=== PATIENT | female | born 1955 | race Caucasian/White ===

== ENCOUNTER 2019-07-02 22:29 | Emergency (ER) | payer OTHER ==
[~2019-07-02] VITALS: Ht 160 cm; Wt 74.8 kg
[2019-07-02 22:45] VITALS: BP_SYST 115
--- NOTE | 2019-07-02 23:40 | NUR ---
Patient triaged and placed in waiting room. VSS and patient appears in no acute distress at this time. Accompanied by DAUGHTER, awaiting available bed, and MD notified of need for MSE.
--- NOTE | 2019-07-03 01:23 | NUR ---
Patient to ER bed 01 to gown for evaluation. Side rails up.
--- NOTE | 2019-07-03 01:27 | NUR ---
Pt AAOx4 ambulated into ED c/o 1 episode of generalized weakness yesterday morning and is concerned she may have had a stroke. NIHSS 0. Also c/o redness and swelling to L lower extremity x 2 weeks. Pt has been treated at [facility] with no relief. No other injuries/complaints per pt/noted. Will continue to monitor.
--- NOTE | 2019-07-03 01:30 | NUR ---
ER Dr. Johnson at bedside examining patient.
[2019-07-03] MEDS ORDERED: VANCOMYCIN HCL 1,000 MG in D5W 250 ML IV ONE (01:45)
--- NOTE | 2019-07-03 02:23 | NUR ---
Lab at bedside for blood draw
[2019-07-03 02:30] LABS: BASOPHILS % (AUTO) 0.6 % (0.0-2.0); EOSINOPHILS # (AUTO) 0.1 K/uL (0.0-0.4); EOSINOPHILS % (AUTO) 1.6 % (0.0-4.0); HEMATOCRIT 34.2 % (36-48); HEMOGLOBIN 11.5 g/dL (12.0-16.0); LYMPHOCYTES # (AUTO) 1.4 K/uL (1.0-5.5); LYMPHOCYTES % (AUTO) 27.8 % (20.5-51.5); MEAN CORPUSCULAR HEMOGLOBIN 29 pg (27-31); MEAN CORPUSCULAR HGB CONC 34 % (32-36); MEAN CORPUSCULAR VOLUME 87 fL (79.0-98.0); MONOCYTES # (AUTO) 0.8 K/uL (0.0-1.0); MONOCYTES % (AUTO) 15.6 % (1.7-9.3); NEUTROPHILS # (AUTO) 2.7 K/uL (1.8-7.7); NEUTROPHILS % (AUTO) 54.4 % (40.0-70.0); PLATELET COUNT (AUTO) 231 K/uL (130-430); RED BLOOD CELL COUNT(AUTO) 3.94 MIL/uL (4.2-6.2); RED CELL DISTRIBUTION WIDTH 14.3 % (9.0-15.0)
[2019-07-03 02:44] LABS: CALCIUM 8.4 mg/dL (8.4-11.0); CREATININE 0.8 mg/dL (0.55-1.30); POTASSIUM 3.3 mmol/L (3.5-5.1)
[2019-07-03 02:50] LABS: ALBUMIN 2.6 g/dL (3.4-4.8); TOTAL BILIRUBIN 0.4 mg/dL (0.0-1.0)
--- NOTE | 2019-07-03 03:43 | NUR ---
Johnie ventura in [facility] - 07/03/19 at 0351 by [email or web address] Care endorsed to Guido VILLALBA
--- NOTE | 2019-07-03 03:43 | NUR ---
Care endorsed to Gayla VILLALBA
[2019-07-03 04:23] VITALS: BP_SYST 121
--- NOTE | 2019-07-03 04:23 | NUR ---
Patient given written and verbal discharge instructions and verbalizes understanding. ER MD Johnson discussed with patient the results and treatment provided. Patient in stable condition. ID arm band removed. Rx of Clindamycin given. Patient educated on pain management and to follow up with PMD. Pain Scale 0. Opportunity for questions provided and answered. Medication side effect fact sheet provided.
== END 2019-07-03 04:23 | disposition home or self-care (01) ==
LOC: SED 22:29
DX: L03.116 Cellulitis of left lower limb (principal); F17.210 Nicotine dependence, cigarettes, uncomplicated; Z71.6 Tobacco abuse counseling; Z88.0 Allergy status to penicillin
CPT/HCPCS: 36415; 71045; 73590-TC; 80053; 83605; 84484; 85025; 87040-TC; 93005; 99285

== ENCOUNTER 2019-10-09 14:19 | Inpatient (IN) | payer OTHER ==
[~2019-10-09] VITALS: Ht 160 cm; Wt 68.0 kg
[2019-10-09 14:20] VITALS: BP_SYST 103
[2019-10-09] MEDS ORDERED: NACL 0.9% 1,000 ML IV ONE ×2 (15:13→17:45)
[2019-10-09] MEDS ORDERED: VANCOMYCIN HCL 1,000 MG in NS 250 ML IV ONE (15:15)
[2019-10-09] MEDS ORDERED: ONDANSETRON HCL 4 MG/2 ML VIAL IVP PRN ×2 (17:45→18:00)
[2019-10-09] MEDS ORDERED: ACETAMINOPHEN 325 MG TABLET PO PRN (17:45)
[2019-10-09] MEDS ORDERED: TEMAZEPAM 15 MG CAPSULE PO PRN (18:00)
[2019-10-09] MEDS ORDERED: HYDROcodone/ACETAMIN 5-325 MG TAB (NORCO/ VICODIN) PO PRN (18:00)
[2019-10-09 18:35] VITALS: BP_SYST 116
[2019-10-09 19:30] VITALS: BP_SYST 128
[2019-10-09] MEDS: NICOTINE 21 MG/24 HR PATCH.TD24 TD SCH (19:30)
[2019-10-09] MEDS: HYDROcodone/ACETAMIN 10-325 MG TAB PO PRN (20:29)
[2019-10-09] MEDS ORDERED: VANCOMYCIN HCL 1 GM/NS PREMIX 250 ML IV ONE (21:00)
[2019-10-09] MEDS ORDERED: SILVER SULFADIAZINE 1%, 400 GM 400 GM CREAM.GM. TP SCH (21:00)
[2019-10-09] MEDS ORDERED: CEFAZOLIN 1 GM IVPB PREMIX 50 ML IV SCH (22:00)
[2019-10-09] MEDS: ENOXAPARIN SODIUM 40 MG/0.4 ML SYRINGE SUBCUT SCH (23:25)
[2019-10-10 00:31] VITALS: BP_SYST 120
[2019-10-10] MEDS ORDERED: CEFAZOLIN 1 GM IVPB PREMIX 50 ML IV ONE (00:55)
[2019-10-10] MEDS ORDERED: VANCOMYCIN HCL 1000 MG/VIAL IV ONE (00:56)
[2019-10-10 08:00] VITALS: BP_SYST 110
[2019-10-10] MEDS: NICOTINE 21 MG/24 HR PATCH.TD24 TD SCH (09:21)
[2019-10-10] MEDS: SILVER SULFADIAZINE 1%, 25 GM TOPICAL CREAM (SSD) TP SCH ×2 (09:21→21:32)
[2019-10-10] MEDS: CEFAZOLIN 1 GM IVPB PREMIX 50 ML IV SCH ×2 (09:21→17:47)
[2019-10-10 12:00] VITALS: BP_SYST 100
[2019-10-10 13:14] LABS: CALCIUM 8.3 mg/dL (8.4-11.0); CREATININE 1.09 mg/dL (0.55-1.30)
[2019-10-10 13:19] LABS: ALBUMIN 1.8 g/dL (3.4-4.8); TOTAL BILIRUBIN 0.5 mg/dL (0.0-1.0)
[2019-10-10 13:36] LABS: POTASSIUM 2.8 mmol/L (3.5-5.1)
[2019-10-10] MEDS ORDERED: POTASSIUM CHLORIDE 20 MEQ TAB.PRT.SR PO ONE ×2 (13:45→18:00)
[2019-10-10] MEDS ORDERED: CHOLECALCIFEROL (VITAMIN D3) 2,000 UNIT TABLET PO ONE (13:45)
[2019-10-10] MEDS ORDERED: MULTIVITS,CA,MINERALS/IRON/FA 1 TABLET PO ONE (13:45)
[2019-10-10] MEDS: HYDROcodone/ACETAMIN 10-325 MG TAB PO PRN (14:12)
[2019-10-10 14:22] LABS: BASOPHILS # (AUTO) 0.1 K/uL (0.0-0.2); BASOPHILS % (AUTO) 0.8 % (0.0-2.0); EOSINOPHILS % (AUTO) 0.1 % (0.0-4.0); HEMATOCRIT 36.1 % (36-48); HEMOGLOBIN 12.2 g/dL (12.0-16.0); LYMPHOCYTES # (AUTO) 1.1 K/uL (1.0-5.5); LYMPHOCYTES % (AUTO) 10.2 % (20.5-51.5); MEAN CORPUSCULAR HEMOGLOBIN 28 pg (27-31); MEAN CORPUSCULAR HGB CONC 34 % (32-36); MEAN CORPUSCULAR VOLUME 83 fL (79.0-98.0); MONOCYTES # (AUTO) 0.3 K/uL (0.0-1.0); MONOCYTES % (AUTO) 2.8 % (1.7-9.3); NEUTROPHILS % (AUTO) 86.1 % (40.0-70.0); PLATELET COUNT (AUTO) 257 K/uL (130-430); RED BLOOD CELL COUNT(AUTO) 4.33 MIL/uL (4.2-6.2); RED CELL DISTRIBUTION WIDTH 15.7 % (9.0-15.0); WHITE BLOOD COUNT (AUTO) 10.5 K/uL (4.8-10.8)
[2019-10-10 14:31] LABS: CALCIUM 8.5 mg/dL (8.4-11.0); CREATININE 1.05 mg/dL (0.55-1.30)
[2019-10-10 14:35] LABS: INR 1.1 (0.8-1.2); PROTHROMBIN TIME 11.4 SECS (9.5-12.5)
[2019-10-10 14:46] LABS: ALBUMIN 1.7 g/dL (3.4-4.8); TOTAL BILIRUBIN 0.5 mg/dL (0.0-1.0)
[2019-10-10 16:26] VITALS: BP_SYST 99
[2019-10-10 20:00] VITALS: BP_SYST 99
[2019-10-10] MEDS: ENOXAPARIN SODIUM 40 MG/0.4 ML SYRINGE SUBCUT SCH (21:31)
[2019-10-10] MEDS ORDERED: VANCOMYCIN HCL 1,000 MG in NS 250 ML IV SCH (23:00)
[2019-10-11 00:30] VITALS: BP_SYST 94
[2019-10-11] MEDS: CEFAZOLIN 1 GM IVPB PREMIX 50 ML IV SCH ×3 (00:53→17:17)
[2019-10-11] MEDS: HYDROcodone/ACETAMIN 10-325 MG TAB PO PRN ×4 (02:42→22:25)
[2019-10-11 06:40] LABS: BASOPHILS % (AUTO) 0.6 % (0.0-2.0); EOSINOPHILS % (AUTO) 0.3 % (0.0-4.0); HEMATOCRIT 33.4 % (36-48); HEMOGLOBIN 11.3 g/dL (12.0-16.0); LYMPHOCYTES % (AUTO) 11.5 % (20.5-51.5); MEAN CORPUSCULAR HEMOGLOBIN 28 pg (27-31); MEAN CORPUSCULAR HGB CONC 34 % (32-36); MEAN CORPUSCULAR VOLUME 83 fL (79.0-98.0); MONOCYTES # (AUTO) 0.3 K/uL (0.0-1.0); MONOCYTES % (AUTO) 3.9 % (1.7-9.3); NEUTROPHILS % (AUTO) 83.7 % (40.0-70.0); PLATELET COUNT (AUTO) 222 K/uL (130-430); RED BLOOD CELL COUNT(AUTO) 4.02 MIL/uL (4.2-6.2); RED CELL DISTRIBUTION WIDTH 16.1 % (9.0-15.0); WHITE BLOOD COUNT (AUTO) 8.3 K/uL (4.8-10.8)
[2019-10-11 06:59] LABS: ALBUMIN 1.7 g/dL (3.4-4.8); CALCIUM 8.7 mg/dL (8.4-11.0); CREATININE 0.91 mg/dL (0.55-1.30); POTASSIUM 3.7 mmol/L (3.5-5.1); TOTAL BILIRUBIN 0.4 mg/dL (0.0-1.0)
[2019-10-11] MEDS: POTASSIUM CHLORIDE 20 MEQ TAB.PRT.SR PO SCH (09:27)
[2019-10-11] MEDS: CHOLECALCIFEROL (VITAMIN D3) 2,000 UNIT TABLET PO SCH (09:27)
[2019-10-11] MEDS: NICOTINE 21 MG/24 HR PATCH.TD24 TD SCH (09:27)
[2019-10-11] MEDS: MULTIVITS,CA,MINERALS/IRON/FA 1 TABLET PO SCH (09:27)
[2019-10-11] MEDS: SILVER SULFADIAZINE 1%, 25 GM TOPICAL CREAM (SSD) TP SCH ×2 (09:29→22:21)
[2019-10-11 12:00] VITALS: BP_SYST 95
[2019-10-11 16:50] VITALS: BP_SYST 112
[2019-10-11 20:00] VITALS: BP_SYST 108
[2019-10-11] MEDS: ENOXAPARIN SODIUM 40 MG/0.4 ML SYRINGE SUBCUT SCH (22:16)
[2019-10-11] MEDS: VANCOMYCIN HCL 1,500 MG in NS 250 ML IV SCH (22:17)
[2019-10-12] MEDS: CEFAZOLIN 1 GM IVPB PREMIX 50 ML IV SCH ×2 (01:18→08:08)
[2019-10-12 01:34] VITALS: BP_SYST 92
[2019-10-12 08:00] VITALS: BP_SYST 109
[2019-10-12] MEDS: POTASSIUM CHLORIDE 20 MEQ TAB.PRT.SR PO SCH (08:09)
[2019-10-12] MEDS: MULTIVITS,CA,MINERALS/IRON/FA 1 TABLET PO SCH (08:09)
[2019-10-12] MEDS: CHOLECALCIFEROL (VITAMIN D3) 2,000 UNIT TABLET PO SCH (08:09)
[2019-10-12] MEDS: NICOTINE 21 MG/24 HR PATCH.TD24 TD SCH (08:13)
[2019-10-12] MEDS: SILVER SULFADIAZINE 1%, 25 GM TOPICAL CREAM (SSD) TP SCH ×2 (09:00→20:19)
[2019-10-12] MEDS ORDERED: GADOBENATE DIMEGLUMINE 529 MG/ML, 15 ML VIAL IV ONE (10:50)
[2019-10-12 12:23] VITALS: BP_SYST 98
[2019-10-12] MEDS: HYDROcodone/ACETAMIN 10-325 MG TAB PO PRN ×2 (12:31→20:13)
[2019-10-12 16:20] VITALS: BP_SYST 110
[2019-10-12] MEDS ORDERED: BALSAM PERU/CASTOR OIL 60 GM OINT...G. TP SCH (17:00)
[2019-10-12] MEDS: CEFEPIME 1 GM in D5W 50 ML IV SCH (17:35)
[2019-10-12] MEDS: MORPHINE 4 MG/ML INJ. SYRINGE IVP PRN (17:47)
[2019-10-12] MEDS: VANCOMYCIN HCL 1,500 MG in NS 250 ML IV SCH (18:27)
[2019-10-12 20:00] VITALS: BP_SYST 99
[2019-10-12] MEDS: ENOXAPARIN SODIUM 40 MG/0.4 ML SYRINGE SUBCUT SCH (20:18)
[2019-10-13] MEDS: MORPHINE 4 MG/ML INJ. SYRINGE IVP PRN ×3 (00:18→20:01)
[2019-10-13 02:27] VITALS: BP_SYST 101
[2019-10-13] MEDS: CEFEPIME 1 GM in D5W 50 ML IV SCH ×2 (05:07→16:36)
[2019-10-13 06:55] LABS: BASOPHILS # (AUTO) 0.1 K/uL (0.0-0.2); BASOPHILS % (AUTO) 0.6 % (0.0-2.0); EOSINOPHILS # (AUTO) 0.4 K/uL (0.0-0.4); EOSINOPHILS % (AUTO) 4.5 % (0.0-4.0); HEMATOCRIT 30.5 % (36-48); HEMOGLOBIN 10.1 g/dL (12.0-16.0); LYMPHOCYTES # (AUTO) 1.5 K/uL (1.0-5.5); LYMPHOCYTES % (AUTO) 17.8 % (20.5-51.5); MEAN CORPUSCULAR HEMOGLOBIN 28 pg (27-31); MEAN CORPUSCULAR HGB CONC 33 % (32-36); MEAN CORPUSCULAR VOLUME 84 fL (79.0-98.0); MONOCYTES # (AUTO) 0.8 K/uL (0.0-1.0); NEUTROPHILS # (AUTO) 5.9 K/uL (1.8-7.7); NEUTROPHILS % (AUTO) 68.1 % (40.0-70.0); PLATELET COUNT (AUTO) 188 K/uL (130-430); RED BLOOD CELL COUNT(AUTO) 3.64 MIL/uL (4.2-6.2); RED CELL DISTRIBUTION WIDTH 16.2 % (9.0-15.0); WHITE BLOOD COUNT (AUTO) 8.6 K/uL (4.8-10.8)
[2019-10-13 07:17] LABS: CALCIUM 8.6 mg/dL (8.4-11.0); CREATININE 0.82 mg/dL (0.55-1.30); POTASSIUM 4.3 mmol/L (3.5-5.1)
[2019-10-13] MEDS: CHOLECALCIFEROL (VITAMIN D3) 2,000 UNIT TABLET PO SCH (08:12)
[2019-10-13] MEDS: POTASSIUM CHLORIDE 20 MEQ TAB.PRT.SR PO SCH (08:12)
[2019-10-13] MEDS: MULTIVITS,CA,MINERALS/IRON/FA 1 TABLET PO SCH (08:12)
[2019-10-13] MEDS: NICOTINE 21 MG/24 HR PATCH.TD24 TD SCH (08:13)
[2019-10-13 08:15] VITALS: BP_SYST 90
[2019-10-13] MEDS: SILVER SULFADIAZINE 1%, 25 GM TOPICAL CREAM (SSD) TP SCH ×2 (08:16→21:25)
[2019-10-13] MEDS: HYDROcodone/ACETAMIN 10-325 MG TAB PO PRN (08:22)
[2019-10-13 12:00] VITALS: BP_SYST 104
[2019-10-13 16:51] VITALS: BP_SYST 95
[2019-10-13] MEDS: VANCOMYCIN HCL 1,500 MG in NS 250 ML IV SCH (17:42)
[2019-10-13 20:00] VITALS: BP_SYST 105
[2019-10-13] MEDS: ENOXAPARIN SODIUM 40 MG/0.4 ML SYRINGE SUBCUT SCH (21:24)
[2019-10-14 01:33] VITALS: BP_SYST 142
[2019-10-14] MEDS: CEFEPIME 1 GM in D5W 50 ML IV SCH ×2 (05:46→16:37)
[2019-10-14 06:33] LABS: BASOPHILS % (AUTO) 0.6 % (0.0-2.0); EOSINOPHILS # (AUTO) 0.3 K/uL (0.0-0.4); HEMATOCRIT 31.8 % (36-48); HEMOGLOBIN 10.4 g/dL (12.0-16.0); LYMPHOCYTES # (AUTO) 1.3 K/uL (1.0-5.5); LYMPHOCYTES % (AUTO) 18.2 % (20.5-51.5); MEAN CORPUSCULAR HEMOGLOBIN 28 pg (27-31); MEAN CORPUSCULAR HGB CONC 33 % (32-36); MEAN CORPUSCULAR VOLUME 84 fL (79.0-98.0); MONOCYTES # (AUTO) 0.7 K/uL (0.0-1.0); MONOCYTES % (AUTO) 9.8 % (1.7-9.3); NEUTROPHILS # (AUTO) 4.6 K/uL (1.8-7.7); NEUTROPHILS % (AUTO) 67.4 % (40.0-70.0); PLATELET COUNT (AUTO) 214 K/uL (130-430); RED CELL DISTRIBUTION WIDTH 16.2 % (9.0-15.0); WHITE BLOOD COUNT (AUTO) 6.9 K/uL (4.8-10.8)
[2019-10-14 06:34] LABS: CREATININE 0.76 mg/dL (0.55-1.30); POTASSIUM 4.5 mmol/L (3.5-5.1)
[2019-10-14] MEDS: NICOTINE 21 MG/24 HR PATCH.TD24 TD SCH (09:00)
[2019-10-14] MEDS: CHOLECALCIFEROL (VITAMIN D3) 2,000 UNIT TABLET PO SCH (10:30)
[2019-10-14] MEDS: MULTIVITS,CA,MINERALS/IRON/FA 1 TABLET PO SCH (10:31)
[2019-10-14] MEDS: POTASSIUM CHLORIDE 20 MEQ TAB.PRT.SR PO SCH (10:31)
[2019-10-14] MEDS: SILVER SULFADIAZINE 1%, 25 GM TOPICAL CREAM (SSD) TP SCH (10:32)
[2019-10-14 12:57] VITALS: BP_SYST 100
[2019-10-14] MEDS ORDERED: MULT-33 PO (16:48)
[2019-10-14] MEDS ORDERED: VITD2000 PO (16:48)
[2019-10-14] MEDS ORDERED: SILVER SULFADIAZINE TP (16:57)
[2019-10-14 17:24] VITALS: BP_SYST 106
[2019-10-14 17:43] VITALS: BP_SYST 106
[2019-10-14] MEDS ORDERED: HEPARIN IV FLUSH 300 UNITS/3ML SYR INJ ONE (17:45)
== END 2019-10-14 18:07 | disposition home health service (06) | DRG 383 ==
LOC: SED 14:19 → SMU 17:38
PROVIDERS: ADMIT Internal Medicine; ATTEND Internal Medicine
DX: L03.116 Cellulitis of left lower limb (principal); E43 Unspecified severe protein-calorie malnutrition; L97.929 Non-pressure chronic ulcer of unspecified part of left lower leg with unspecified severity; I73.9 Peripheral vascular disease, unspecified; F17.200 Nicotine dependence, unspecified, uncomplicated; E87.6 Hypokalemia; D64.9 Anemia, unspecified; I89.0 Lymphedema, not elsewhere classified; B96.5 Pseudomonas (aeruginosa) (mallei) (pseudomallei) as the cause of diseases classified elsewhere; E66.9 Obesity, unspecified; Z90.49 Acquired absence of other specified parts of digestive tract; Z68.26 Body mass index [BMI] 26.0-26.9, adult; Z88.0 Allergy status to penicillin; Z71.6 Tobacco abuse counseling
CPT/HCPCS: 36415; 71045; 73590-TC; 73720; 80048; 80053; 80202-TC; 83605; 83735-TC; 85025; 85610-TC; 85730-TC; 87040-TC; 87070-TC; 87186-TC; 93005; 93970; 99285; A9577; C1751; C1769; J0690; J0692; J1642; J1650; J2270; J2405; J3370; J7030; J7050; J7060

== ENCOUNTER 2020-08-07 22:40 | Emergency (ER) | payer OTHER, SELFPAY ==
[~2020-08-07] VITALS: Ht 160 cm; Wt 70.3 kg
[~2020-08-07 22:40] MED LIST: MULT-33 PO; SILVER SULFADIAZINE TP; VITD2000 PO
[2020-08-07 22:55] VITALS: BP_SYST 132
[2020-08-07] MEDS ORDERED: NACL 0.9% 1,000 ML IV ONE (23:15)
[2020-08-07] MEDS ORDERED: MORPHINE 4 MG/ML INJ. SYRINGE IVP ONE (23:15)
[2020-08-07] MEDS ORDERED: KETOROLAC TROMETHAMINE 30 MG VIAL IVP ONE (23:15)
[2020-08-07] MEDS ORDERED: OXYCODONE/ACETAMINOPHEN 5-325 TABLET PO ONE (23:45)
[2020-08-08 00:19] LABS: BASOPHILS # (AUTO) 0.2 K/uL (0.0-0.2); BASOPHILS % (AUTO) 1.9 % (0.0-2.0); EOSINOPHILS # (AUTO) 0.1 K/uL (0.0-0.4); EOSINOPHILS % (AUTO) 1.2 % (0.0-4.0); HEMATOCRIT 39.4 % (36-48); HEMOGLOBIN 12.9 g/dL (12.0-16.0); LYMPHOCYTES # (AUTO) 1.5 K/uL (1.0-5.5); LYMPHOCYTES % (AUTO) 16.4 % (20.5-51.5); MEAN CORPUSCULAR HEMOGLOBIN 28 pg (27-31); MEAN CORPUSCULAR HGB CONC 33 % (32-36); MEAN CORPUSCULAR VOLUME 85 fL (79.0-98.0); MONOCYTES # (AUTO) 0.2 K/uL (0.0-1.0); MONOCYTES % (AUTO) 2.5 % (1.7-9.3); NEUTROPHILS # (AUTO) 7.1 K/uL (1.8-7.7); PLATELET COUNT (AUTO) 265 K/uL (130-430); RED BLOOD CELL COUNT(AUTO) 4.65 MIL/uL (4.2-6.2); RED CELL DISTRIBUTION WIDTH 15.5 % (9.0-15.0); WHITE BLOOD COUNT (AUTO) 9.1 K/uL (4.8-10.8)
[2020-08-08 00:26] LABS: CALCIUM 9.9 mg/dL (8.4-11.0); CREATININE 1.19 mg/dL (0.55-1.30); POTASSIUM 4.4 mmol/L (3.5-5.1)
[2020-08-08 02:53] LABS: BILIRUBIN,URINE NEGATIVE (NEGATIVE); COLOR,URINE YELLOW (YELLOW); GLUCOSE,URINE NEGATIVE (NEGATIVE); KETONES,URINE NEGATIVE (NEGATIVE); LEUKOCYTE ESTERASE ,URINE 2+ (NEGATIVE); NITRITE, URINE POSITIVE (NEGATIVE); PROTEIN URINE NEGATIVE (NEGATIVE); UROBILINOGEN,URINE 0.2 (0.2-1.0)
[2020-08-08 02:55] LABS: BLOOD, URINE TRACE (NEGATIVE); CLARITY/URINE HAZY (CLEAR)
[2020-08-08 03:08] LABS: BACTERIA,URINE MODERATE /HPF (None Seen); WBC,URINE 20-50 /HPF (0-3)
[2020-08-08] MEDS ORDERED: cefTRIAXone 1 GM VIAL ONE (03:10)
[2020-08-08] MEDS ORDERED: LIDOCAINE 1%, 20 ML MDV 20 ML ONE (03:11)
[2020-08-08] MEDS ORDERED: CEPH500C2 PO (03:29)
[2020-08-08] MEDS ORDERED: KETO10TA2 PO (03:32)
[2020-08-08 03:42] VITALS: BP_SYST 122
== END 2020-08-08 03:42 | disposition home or self-care (01) ==
LOC: SED 22:40
DX: N20.0 Calculus of kidney (principal); N39.0 Urinary tract infection, site not specified; I10 Essential (primary) hypertension; F17.200 Nicotine dependence, unspecified, uncomplicated; Z88.0 Allergy status to penicillin; Z88.1 Allergy status to other antibiotic agents; Z79.899 Other long term (current) drug therapy
CPT/HCPCS: 36415; 74176; 76376; 76770; 80048; 81000; 85025; 87086; 96374; 99285; J0696; J1885; J2001; J2270

== ENCOUNTER 2021-07-30 11:46 | Inpatient (IN) | payer OTHER ==
[~2021-07-30] VITALS: Ht 160 cm; Wt 93.9 kg
[~2021-07-30 11:46] MED LIST changes: +CEPH-548 PO; +KETO10TA2 PO
[2021-07-30 12:01] VITALS: BP_SYST 106
[2021-07-30] MEDS ORDERED: VANCOMYCIN HCL 1,000 MG in NS 250 ML IV ONE (12:30)
[2021-07-30 14:03] LABS: CREATININE 0.96 mg/dL (0.55-1.30); POTASSIUM 3.9 mmol/L (3.5-5.1)
[2021-07-30 14:04] LABS: BASOPHILS # (AUTO) 0.1 K/uL (0.0-0.2); BASOPHILS % (AUTO) 0.3 % (0.0-2.0); EOSINOPHILS # (AUTO) 0.2 K/uL (0.0-0.4); EOSINOPHILS % (AUTO) 1.5 % (0.0-4.0); HEMATOCRIT 41.7 % (36-48); HEMOGLOBIN 14.2 g/dL (12.0-16.0); LYMPHOCYTES # (AUTO) 0.8 K/uL (1.0-5.5); LYMPHOCYTES % (AUTO) 4.6 % (20.5-51.5); MEAN CORPUSCULAR HEMOGLOBIN 30 pg (27-31); MEAN CORPUSCULAR HGB CONC 34 % (32-36); MEAN CORPUSCULAR VOLUME 87 fL (79.0-98.0); MONOCYTES # (AUTO) 0.3 K/uL (0.0-1.0); NEUTROPHILS # (AUTO) 15.1 K/uL (1.8-7.7); NEUTROPHILS % (AUTO) 91.6 % (40.0-70.0); PLATELET COUNT (AUTO) 182 K/uL (130-430); RED CELL DISTRIBUTION WIDTH 14.7 % (9.0-15.0); WHITE BLOOD COUNT (AUTO) 16.5 K/uL (4.8-10.8)
[2021-07-30 14:09] LABS: ALBUMIN 2.6 g/dL (3.4-4.8); TOTAL BILIRUBIN 1.5 mg/dL (0.0-1.0)
[2021-07-30] MEDS ORDERED: ACETAMINOPHEN 325 MG TABLET PO PRN (14:30)
[2021-07-30] MEDS ORDERED: DOCUSATE SODIUM 100 MG CAPSULE PO PRN (14:30)
[2021-07-30] MEDS ORDERED: cefTRIAXone 1 GM in D5W 50 ML IV ONE (14:30)
[2021-07-30] MEDS ORDERED: ONDANSETRON HCL 4 MG/2 ML VIAL IVP PRN (14:30)
[2021-07-30 14:45] LABS: BILIRUBIN,URINE 1+ (NEGATIVE); BLOOD, URINE 2+ (NEGATIVE); CLARITY/URINE CLEAR (CLEAR); COLOR,URINE YELLOW (YELLOW); GLUCOSE,URINE NEGATIVE (NEGATIVE); KETONES,URINE NEGATIVE (NEGATIVE); LEUKOCYTE ESTERASE ,URINE TRACE (NEGATIVE); NITRITE, URINE NEGATIVE (NEGATIVE); PH,URINE 6.5 (5.0-8.0); PROTEIN URINE 2+ (NEGATIVE)
[2021-07-30 14:51] LABS: C-REACTIVE PROTEIN QUANT 30.8 mg/dL (0-0.5)
[2021-07-30 15:07] LABS: CKMB RELATIVE INDEX 0.5 (0.0-2.9); CREATINE KINASE MB 2.5 ng/mL (0-3.6)
[2021-07-30 15:08] LABS: INR 1.1 (0.8-1.2); PROTHROMBIN TIME 10.8 SECS (9.5-12.5)
[2021-07-30 15:13] LABS: BACTERIA,URINE MODERATE /HPF (None Seen); HYALINE CASTS, URINE 0-10 /LPF (None Seen)
[2021-07-30 15:27] LABS: PHOSPHORUS 2.4 mg/dL (2.7-4.5); THYROID STIMULATING HORMONE 0.48 uIu/mL (0.36-3.74)
[2021-07-30] MEDS ORDERED: NALOXONE HCL 0.4 MG/ML AMP (NARCAN) IVP PRN (16:15)
[2021-07-30] MEDS ORDERED: MORPHINE 4 MG INJ. 4 MG/ML VIAL IM ONE (17:00)
[2021-07-30 18:13] VITALS: BP_SYST 116
[2021-07-30] MEDS: VANCOMYCIN HCL 1,500 MG in NS 250 ML IV SCH (23:25)
[2021-07-31 02:44] VITALS: BP_SYST 104
[2021-07-31] MEDS: HYDROcodone/ACETAMIN 5-325 MG TAB (NORCO/ VICODIN) PO PRN ×2 (06:43→23:23)
[2021-07-31 07:14] LABS: BASOPHILS % (AUTO) 0.3 % (0.0-2.0); HEMATOCRIT 42.9 % (36-48); HEMOGLOBIN 14.3 g/dL (12.0-16.0); LYMPHOCYTES # (AUTO) 0.7 K/uL (1.0-5.5); LYMPHOCYTES % (AUTO) 6.3 % (20.5-51.5); MEAN CORPUSCULAR HEMOGLOBIN 29 pg (27-31); MEAN CORPUSCULAR HGB CONC 33 % (32-36); MEAN CORPUSCULAR VOLUME 88 fL (79.0-98.0); MONOCYTES # (AUTO) 0.3 K/uL (0.0-1.0); MONOCYTES % (AUTO) 2.4 % (1.7-9.3); NEUTROPHILS # (AUTO) 10.8 K/uL (1.8-7.7); PLATELET COUNT (AUTO) 133 K/uL (130-430); RED BLOOD CELL COUNT(AUTO) 4.87 MIL/uL (4.2-6.2); WHITE BLOOD COUNT (AUTO) 11.8 K/uL (4.8-10.8)
[2021-07-31 07:31] LABS: CALCIUM 9.9 mg/dL (8.4-11.0); CREATININE 1.12 mg/dL (0.55-1.30); POTASSIUM 3.8 mmol/L (3.5-5.1)
[2021-07-31 08:00] VITALS: BP_SYST 106
[2021-07-31 11:23] VITALS: BP_SYST 102
[2021-07-31 15:58] VITALS: BP_SYST 110
[2021-07-31] MEDS ORDERED: cefTRIAXone 1 GM IVPB PREMIX 50 ML IV SCH (18:00)
[2021-07-31] MEDS: NACL 0.9% 1,000 ML IV SCH (21:35)
[2021-07-31] MEDS: VANCOMYCIN HCL 1,500 MG in NS 250 ML IV SCH (21:37)
[2021-07-31 23:40] VITALS: BP_SYST 104
[2021-08-01 00:18] VITALS: BP_SYST 105
[2021-08-01] MEDS: NACL 0.9% 1,000 ML IV SCH ×2 (05:14→16:43)
[2021-08-01 07:38] LABS: BASOPHILS % (AUTO) 0.4 % (0.0-2.0); EOSINOPHILS % (AUTO) 0.5 % (0.0-4.0); HEMATOCRIT 34.2 % (36-48); HEMOGLOBIN 11.5 g/dL (12.0-16.0); LYMPHOCYTES # (AUTO) 0.8 K/uL (1.0-5.5); LYMPHOCYTES % (AUTO) 8.2 % (20.5-51.5); MEAN CORPUSCULAR HEMOGLOBIN 30 pg (27-31); MEAN CORPUSCULAR HGB CONC 34 % (32-36); MEAN CORPUSCULAR VOLUME 88 fL (79.0-98.0); MONOCYTES # (AUTO) 0.6 K/uL (0.0-1.0); MONOCYTES % (AUTO) 6.1 % (1.7-9.3); NEUTROPHILS # (AUTO) 7.7 K/uL (1.8-7.7); NEUTROPHILS % (AUTO) 84.8 % (40.0-70.0); PLATELET COUNT (AUTO) 112 K/uL (130-430); RED BLOOD CELL COUNT(AUTO) 3.91 MIL/uL (4.2-6.2); WHITE BLOOD COUNT (AUTO) 9.1 K/uL (4.8-10.8)
[2021-08-01 08:00] VITALS: BP_SYST 97
[2021-08-01 08:39] LABS: CALCIUM 9.4 mg/dL (8.4-11.0); CREATININE 0.85 mg/dL (0.55-1.30); PHOSPHORUS 1.7 mg/dL (2.7-4.5); POTASSIUM 3.7 mmol/L (3.5-5.1)
[2021-08-01 12:00] VITALS: BP_SYST 107
[2021-08-01] MEDS: cefTRIAXone 1 GM in D5W 50 ML IV SCH (13:10)
[2021-08-01 16:00] VITALS: BP_SYST 103
[2021-08-01] MEDS: VANCOMYCIN HCL 1,500 MG in NS 250 ML IV SCH (20:32)
[2021-08-02 01:31] VITALS: BP_SYST 107
[2021-08-02 06:01] LABS: CALCIUM 8.6 mg/dL (8.4-11.0); CREATININE 0.66 mg/dL (0.55-1.30); POTASSIUM 3.4 mmol/L (3.5-5.1)
[2021-08-02] MEDS: NACL 0.9% 1,000 ML IV SCH ×3 (06:41→22:53)
[2021-08-02] MEDS: MORPHINE 2 MG/ML INJ. SYRINGE IVP PRN ×2 (06:41→15:47)
[2021-08-02 07:23] LABS: BASOPHILS % (AUTO) 0.4 % (0.0-2.0); EOSINOPHILS # (AUTO) 0.1 K/uL (0.0-0.4); EOSINOPHILS % (AUTO) 1.6 % (0.0-4.0); HEMATOCRIT 31.5 % (36-48); HEMOGLOBIN 10.8 g/dL (12.0-16.0); LYMPHOCYTES # (AUTO) 0.7 K/uL (1.0-5.5); LYMPHOCYTES % (AUTO) 9.8 % (20.5-51.5); MEAN CORPUSCULAR HEMOGLOBIN 30 pg (27-31); MEAN CORPUSCULAR HGB CONC 34 % (32-36); MEAN CORPUSCULAR VOLUME 86 fL (79.0-98.0); MONOCYTES # (AUTO) 0.6 K/uL (0.0-1.0); MONOCYTES % (AUTO) 8.4 % (1.7-9.3); NEUTROPHILS # (AUTO) 5.7 K/uL (1.8-7.7); NEUTROPHILS % (AUTO) 79.8 % (40.0-70.0); PLATELET COUNT (AUTO) 107 K/uL (130-430); RED BLOOD CELL COUNT(AUTO) 3.65 MIL/uL (4.2-6.2); RED CELL DISTRIBUTION WIDTH 15.3 % (9.0-15.0); WHITE BLOOD COUNT (AUTO) 7.1 K/uL (4.8-10.8)
[2021-08-02 08:00] VITALS: BP_SYST 104
[2021-08-02] MEDS: cefTRIAXone 1 GM in D5W 50 ML IV SCH (08:11)
[2021-08-02] MEDS ORDERED: POTASSIUM CHLORIDE 20 MEQ TAB.PRT.SR PO ONE (10:30)
[2021-08-02 12:00] VITALS: BP_SYST 105
[2021-08-02 16:59] VITALS: BP_SYST 107
[2021-08-02] MEDS ORDERED: ERTAPENEM SODIUM 0.5 GM in NS 50 ML IV SCH (17:45)
[2021-08-02 20:00] VITALS: BP_SYST 93
[2021-08-02] MEDS: VANCOMYCIN HCL 1,500 MG in NS 250 ML IV SCH (21:00)
[2021-08-03] VITALS: BP_SYST 98
[2021-08-03 05:52] LABS: BASOPHILS % (AUTO) 0.5 % (0.0-2.0); EOSINOPHILS # (AUTO) 0.2 K/uL (0.0-0.4); EOSINOPHILS % (AUTO) 3.9 % (0.0-4.0); HEMATOCRIT 32.5 % (36-48); LYMPHOCYTES # (AUTO) 0.8 K/uL (1.0-5.5); LYMPHOCYTES % (AUTO) 12.9 % (20.5-51.5); MEAN CORPUSCULAR HEMOGLOBIN 29 pg (27-31); MEAN CORPUSCULAR HGB CONC 34 % (32-36); MEAN CORPUSCULAR VOLUME 87 fL (79.0-98.0); MONOCYTES # (AUTO) 0.6 K/uL (0.0-1.0); MONOCYTES % (AUTO) 9.8 % (1.7-9.3); NEUTROPHILS # (AUTO) 4.5 K/uL (1.8-7.7); NEUTROPHILS % (AUTO) 72.9 % (40.0-70.0); PLATELET COUNT (AUTO) 138 K/uL (130-430); RED BLOOD CELL COUNT(AUTO) 3.76 MIL/uL (4.2-6.2); RED CELL DISTRIBUTION WIDTH 15.3 % (9.0-15.0); WHITE BLOOD COUNT (AUTO) 6.1 K/uL (4.8-10.8)
[2021-08-03 06:54] LABS: CREATININE 0.61 mg/dL (0.55-1.30); POTASSIUM 3.5 mmol/L (3.5-5.1)
[2021-08-03 08:00] VITALS: BP_SYST 99
[2021-08-03] MEDS ORDERED: DOXY100T2 PO (08:05)
[2021-08-03] MEDS: NACL 0.9% 1,000 ML IV SCH (08:30)
[2021-08-03] MEDS: HYDROcodone/ACETAMIN 5-325 MG TAB (NORCO/ VICODIN) PO PRN (10:03)
[2021-08-03 11:27] VITALS: BP_SYST 99
[2021-08-03 12:00] VITALS: BP_SYST 98
[2021-08-03] MEDS ORDERED: VANCOMYCIN HCL 1,000 MG in NS 250 ML IV SCH (21:00)
== END 2021-08-03 12:15 | disposition home health service (06) | DRG 720 ==
LOC: SED 11:46 → SMU 14:28
PROVIDERS: ADMIT Family Medicine; ATTEND Family Medicine
PROC: 05HY33Z Insertion of Infusion Device into Upper Vein, Percutaneous Approach (ICD-10-PCS; principal; 2021-07-30)
PROC: B54NZZA Ultrasonography of Left Upper Extremity Veins, Guidance (ICD-10-PCS; 2021-07-30)
DX: A41.2 Sepsis due to unspecified staphylococcus (principal); E43 Unspecified severe protein-calorie malnutrition; L03.115 Cellulitis of right lower limb; E87.1 Hypo-osmolality and hyponatremia; E66.9 Obesity, unspecified; I87.8 Other specified disorders of veins; I87.2 Venous insufficiency (chronic) (peripheral); E87.6 Hypokalemia; I10 Essential (primary) hypertension; Z20.822 Contact with and (suspected) exposure to COVID-19; I73.9 Peripheral vascular disease, unspecified; N39.0 Urinary tract infection, site not specified; E80.6 Other disorders of bilirubin metabolism; B96.20 Unspecified Escherichia coli [E. coli] as the cause of diseases classified elsewhere; I89.0 Lymphedema, not elsewhere classified; Z16.12 Extended spectrum beta lactamase (ESBL) resistance; Z88.0 Allergy status to penicillin; Z88.4 Allergy status to anesthetic agent; Z79.899 Other long term (current) drug therapy; Z68.36 Body mass index [BMI] 36.0-36.9, adult
CPT/HCPCS: 36415; 71045; 80048; 80053; 80202; 81000; 82150; 82550; 82553; 83605; 83615; 83690; 83735; 83880; 84100; 84443; 85025; 85384; 85610-TC; 85730-TC; 86140; 87040; 87086; 93005; 93971; 96372; 99285; J0696; J1335; J2270; J3370; J7050; J7060

== ENCOUNTER 2021-09-20 15:56 | Inpatient (IN) | payer OTHER ==
[~2021-09-20] VITALS: Ht 160 cm; Wt 100.7 kg
[2021-09-20 15:56] VITALS: BP_SYST 121
[~2021-09-20 15:56] MED LIST changes: -CEPH-548 PO; +DOXY100T2 PO
[2021-09-20] MEDS ORDERED: VANCOMYCIN HCL 1,000 MG in NS 250 ML IV ONE (17:15)
[2021-09-20] MEDS ORDERED: CEFEPIME 2 GM in D5W 100 ML IV ONE (17:15)
[2021-09-20 17:58] LABS: MEAN CORPUSCULAR HGB CONC 33 % (32-36)
[2021-09-20] MEDS ORDERED: VANCOMYCIN HCL 1000 MG/VIAL IV ONE (18:05)
[2021-09-20 18:12] LABS: BASOPHILS % (AUTO) 0.2 % (0.0-2.0); HEMATOCRIT 40.6 % (36-48); HEMOGLOBIN 13.5 g/dL (12.0-16.0); LYMPHOCYTES # (AUTO) 0.5 K/uL (1.0-5.5); LYMPHOCYTES % (AUTO) 2.9 % (20.5-51.5); MEAN CORPUSCULAR HEMOGLOBIN 29 pg (27-31); MEAN CORPUSCULAR VOLUME 88 fL (79.0-98.0); MONOCYTES # (AUTO) 0.3 K/uL (0.0-1.0); MONOCYTES % (AUTO) 1.9 % (1.7-9.3); NEUTROPHILS # (AUTO) 16.9 K/uL (1.8-7.7); PLATELET COUNT (AUTO) 181 K/uL (130-430); RED BLOOD CELL COUNT(AUTO) 4.65 MIL/uL (4.2-6.2); RED CELL DISTRIBUTION WIDTH 15.9 % (9.0-15.0); WHITE BLOOD COUNT (AUTO) 17.8 K/uL (4.8-10.8)
[2021-09-20 18:16] LABS: ANION GAP 9 (5-15); CALCIUM 9.7 mg/dL (8.4-11.0); CHLORIDE 102 mmol/L (98-107); GLUCOSE 107 mg/dL (70-99); SODIUM SERUM 134 mmol/L (136-145); UREA NITROGEN, BLOOD 16 mg/dL (8-21)
[2021-09-20 18:23] LABS: PROTHROMBIN TIME 10.1 SECS (9.5-12.5)
[2021-09-20 18:35] LABS: ALANINE AMINOTRANSFERASE 62 U/L (12-78); ALBUMIN 3.2 g/dL (3.4-4.8); ASPARTATE AMINOTRANSFERASE 51 U/L (10-37); GFR AFRICAN AMERICAN 64 mL/min (>90); THYROID STIMULATING HORMONE 0.59 uIu/mL (0.36-3.74); TOTAL BILIRUBIN 0.9 mg/dL (0.0-1.0)
[2021-09-20] MEDS ORDERED: NACL 0.9% 1,000 ML IV ONE ×2 (18:45→23:15)
[2021-09-20 20:14] LABS: ALCOHOL, BLOOD < 3 mg/dL (<10)
[2021-09-20] MEDS ORDERED: ACETAMINOPHEN 500 MG TABLET ONE (22:53)
[2021-09-20] MEDS ORDERED: ACETAMINOPHEN 500 MG TABLET PO ONE (23:00)
[2021-09-20] MEDS ORDERED: NACL 0.9% 1,000 ML IV STA (23:02)
[2021-09-20] MEDS ORDERED: ACETAMINOPHEN I.V. 1000 MG 100 ML IV ONE (23:15)
[2021-09-20] MEDS ORDERED: KETOROLAC TROMETHAMINE 10 MG TABLET (TORADOL) PO SCH (23:30)
[2021-09-20] MEDS ORDERED: ENOXAPARIN SODIUM 40 MG/0.4 ML SYRINGE SUBCUT SCH (23:42)
[2021-09-20] MEDS ORDERED: ACETAMINOPHEN 325 MG TABLET PO PRN (23:45)
[2021-09-20] MEDS ORDERED: VANCOMYCIN HCL 500 MG in NS 100 ML IV ONE (23:45)
[2021-09-20] MEDS ORDERED: CEFEPIME 2 GM/VIAL (MAXIPIME) ONE (23:52)
[2021-09-20] MEDS ORDERED: NOREPINEPHRINE 4 MG/4 ML VIAL IV ONE (23:59)
[2021-09-21] VITALS (55 sets, daily range): BP systolic 76–111
[2021-09-21] MEDS ORDERED: *LOVENOX 1MG/KG Q12H/PHARMACY XX ONE
[2021-09-21] MEDS ORDERED: ETOMIDATE 20 MG/ 10 ML VIAL (AMIDATE) IVP ONE
[2021-09-21] MEDS ORDERED: ENOXAPARIN SODIUM 80 MG/0.8 ML SYRINGE SUBCUT ONE
[2021-09-21] MEDS ORDERED: SUCCINYLCHOLINE CHLORIDE 20 MG/ML(QUELICIN) IVP ONE
[2021-09-21] MEDS ORDERED: LevALBUTEROL HCL 1.25 MG/0.5 ML *CONC.* VIAL.NEB (XOPENEX CONC.) INH PRN
[2021-09-21 00:14] LABS: BILIRUBIN,URINE NEGATIVE (NEGATIVE); BLOOD, URINE 3+ (NEGATIVE); CLARITY/URINE CLOUDY (CLEAR); COLOR,URINE YELLOW (YELLOW); GLUCOSE,URINE NEGATIVE (NEGATIVE); KETONES,URINE NEGATIVE (NEGATIVE); LEUKOCYTE ESTERASE ,URINE 3+ (NEGATIVE); NITRITE, URINE POSITIVE (NEGATIVE); PH,URINE 6.5 (5.0-8.0); PROTEIN URINE 2+ (NEGATIVE); UROBILINOGEN,URINE 0.2 (0.2-1.0)
[2021-09-21] MEDS ORDERED: MIDAZOLAM HCL 5 MG/5 ML VIAL ONE (00:23)
[2021-09-21 00:24] LABS: BARBITURATE, URINE NEGATIVE (NEG <=200); BENZODIAZEPINE, URINE NEGATIVE (NEG <=150); CANNABINOID, URINE POSITIVE (NEG <=50); COCAINE, URINE NEGATIVE (NEG <=150); METHAMPHETAMINES SCREEN,URINE POSITIVE (NEG <=500); OPIATE, URINE NEGATIVE (NEG <=100); PHENCYCLIDINE SCREEN,URINE NEGATIVE (NEG <=25); UR TRICYCLIC ANTIDEPRESSANTS NEGATIVE (NEG <=300); URINE AMPHETAMINE POSITIVE (NEG <=500); URINE METHADONE NEGATIVE (NEG <=200); URINE OXYCODONE SCREEN NEGATIVE (NEG <=100); URINE PROPOXYPHENE SCREEN NEGATIVE (NEG <=300)
[2021-09-21] MEDS ORDERED: MIDAZOLAM HCL 2 MG/2 ML VIAL (VERSED) IVP ONE (00:30)
[2021-09-21] MEDS ORDERED: PROPOFOL DRIP 100 ML IV ONE (00:30)
[2021-09-21 00:31] LABS: BACTERIA,URINE MANY /HPF (None Seen); RBC,URINE 20-50 /HPF (0-3); WBC,URINE >100 /HPF (0-3)
[2021-09-21] MEDS ORDERED: MORPHINE 4 MG INJ. 4 MG/ML VIAL IVP PRN (00:45)
[2021-09-21] MEDS ORDERED: NOREPINEPHRINE 4 MG/4 ML VIAL IV ONE ×3 (02:42→07:33)
[2021-09-21] MEDS: NOREPINEPHRINE BITARTRATE 4 MG in NS 218 ML IV PRN ×2 (02:46→05:01)
[2021-09-21] MEDS: KCL 20 mEq in D5NS 1000 mL 1,000 ML IV SCH ×2 (03:05→19:43)
[2021-09-21] MEDS ORDERED: ENOXAPARIN SODIUM 100 MG/ML SYRINGE ONE (03:05)
[2021-09-21] MEDS: CLINDAMYCIN 600 mg/50mL D5W 50 ML IV SCH ×4 (05:16→19:42)
[2021-09-21] MEDS: PROPOFOL DRIP 100 ML IV PRN ×4 (05:32→22:33)
[2021-09-21 07:46] LABS: BASOPHILS % (AUTO) 0.2 % (0.0-2.0); EOSINOPHILS % (AUTO) 0.1 % (0.0-4.0); HEMATOCRIT 45.5 % (36-48); HEMOGLOBIN 14.4 g/dL (12.0-16.0); LYMPHOCYTES # (AUTO) 0.8 K/uL (1.0-5.5); LYMPHOCYTES % (AUTO) 4.1 % (20.5-51.5); MEAN CORPUSCULAR HEMOGLOBIN 29 pg (27-31); MEAN CORPUSCULAR HGB CONC 32 % (32-36); MONOCYTES # (AUTO) 0.4 K/uL (0.0-1.0); MONOCYTES % (AUTO) 2.2 % (1.7-9.3); NEUTROPHILS # (AUTO) 18.8 K/uL (1.8-7.7); NEUTROPHILS % (AUTO) 93.4 % (40.0-70.0); PLATELET COUNT (AUTO) 179 K/uL (130-430); RED BLOOD CELL COUNT(AUTO) 5.04 MIL/uL (4.2-6.2); RED CELL DISTRIBUTION WIDTH 16.1 % (9.0-15.0); WHITE BLOOD COUNT (AUTO) 20.1 K/uL (4.8-10.8)
[2021-09-21 08:04] LABS: CALCIUM 8.9 mg/dL (8.4-11.0); CREATININE 1.87 mg/dL (0.55-1.30); POTASSIUM 3.7 mmol/L (3.5-5.1)
[2021-09-21 08:16] LABS: MEAN CORPUSCULAR VOLUME 90 fL (79.0-98.0)
[2021-09-21] MEDS ORDERED: DEXMEDETOMIDINE HCL 400 MCG in NS 96 ML IV PRN ×2 (08:45→19:00)
[2021-09-21] MEDS ORDERED: CHOLECALCIFEROL (VITAMIN D3) 2,000 UNIT TABLET PO SCH (09:00)
[2021-09-21] MEDS ORDERED: VANCOMYCIN HCL 750 MG in NS 250 ML IV SCH (09:00)
[2021-09-21] MEDS ORDERED: ENOXAPARIN SODIUM 100 MG/ML SYRINGE SUBCUT SCH ×2 (09:00→12:00)
[2021-09-21] MEDS ORDERED: MULTIVITS,CA,MINERALS/IRON/FA 1 TABLET PO SCH (09:00)
[2021-09-21] MEDS: VANCOMYCIN HCL 750 MG in NS 250 ML IV SCH ×2 (10:00→21:34)
[2021-09-21] MEDS ORDERED: ENOXAPARIN SODIUM 40 MG/0.4 ML SYRINGE ONE (11:03)
[2021-09-21] MEDS: LevALBUTEROL HCL 1.25 MG/0.5 ML *CONC.* VIAL.NEB (XOPENEX CONC.) INH SCH ×3 (11:36→20:31)
[2021-09-21] MEDS: NOREPINEPHRINE BITARTRATE 8 MG in D5W 242 ML IV PRN (15:52)
[2021-09-21 19:21] LABS: INR 1.6 (0.8-1.2); PROTHROMBIN TIME 15.4 SECS (9.5-12.5)
[2021-09-21] MEDS ORDERED: ACETAMINOPHEN 650 MG/20.3 ML UDC GT PRN (20:00)
[2021-09-21] MEDS: DEXMEDETOMIDINE HCL 400 MCG in NS 96 ML IV PRN (20:45)
[2021-09-22] VITALS (34 sets, daily range): BP systolic 92–145
[2021-09-22] MEDS: NOREPINEPHRINE BITARTRATE 8 MG in D5W 242 ML IV PRN ×2 (00:01→12:38)
[2021-09-22] MEDS: CLINDAMYCIN 600 mg/50mL D5W 50 ML IV SCH ×4 (00:04→17:55)
[2021-09-22] MEDS: LevALBUTEROL HCL 1.25 MG/0.5 ML *CONC.* VIAL.NEB (XOPENEX CONC.) INH SCH ×4 (01:20→19:20)
[2021-09-22] MEDS ORDERED: DEXMEDETOMIDINE HCL 200 MCG/2 ML VIAL IV ONE (04:14)
[2021-09-22] MEDS: DEXMEDETOMIDINE HCL 400 MCG in NS 96 ML IV PRN ×2 (04:20→17:58)
[2021-09-22] MEDS: PROPOFOL DRIP 100 ML IV PRN (05:27)
[2021-09-22] MEDS: KCL 20 mEq in D5NS 1000 mL 1,000 ML IV SCH ×2 (05:28→16:36)
[2021-09-22 06:03] LABS: BASOPHILS % (AUTO) 0.5 % (0.0-2.0); EOSINOPHILS % (AUTO) 0.3 % (0.0-4.0); HEMATOCRIT 41.8 % (36-48); HEMOGLOBIN 13.9 g/dL (12.0-16.0); LYMPHOCYTES # (AUTO) 0.8 K/uL (1.0-5.5); MEAN CORPUSCULAR HEMOGLOBIN 29 pg (27-31); MEAN CORPUSCULAR HGB CONC 33 % (32-36); MEAN CORPUSCULAR VOLUME 88 fL (79.0-98.0); MONOCYTES # (AUTO) 0.2 K/uL (0.0-1.0); MONOCYTES % (AUTO) 2.2 % (1.7-9.3); NEUTROPHILS # (AUTO) 8.2 K/uL (1.8-7.7); PLATELET COUNT (AUTO) 60 K/uL (130-430); RED BLOOD CELL COUNT(AUTO) 4.73 MIL/uL (4.2-6.2); RED CELL DISTRIBUTION WIDTH 16.6 % (9.0-15.0); WHITE BLOOD COUNT (AUTO) 9.3 K/uL (4.8-10.8)
[2021-09-22 06:21] LABS: CALCIUM 8.1 mg/dL (8.4-11.0); CREATININE 2.11 mg/dL (0.55-1.30); POTASSIUM 4.4 mmol/L (3.5-5.1)
[2021-09-22] MEDS: ENOXAPARIN SODIUM 40 MG/0.4 ML SYRINGE SUBCUT SCH (10:37)
[2021-09-22] MEDS: VANCOMYCIN HCL 750 MG in NS 250 ML IV SCH ×2 (12:43→22:44)
[2021-09-22] MEDS ORDERED: IPRATROPIUM/ALBUTEROL SULFATE 3 ML AMPUL.NEB (DUONEB) ONE (14:14)
[2021-09-23] VITALS (33 sets, daily range): BP systolic 11–128
[2021-09-23] MEDS: CLINDAMYCIN 600 mg/50mL D5W 50 ML IV SCH ×4 (00:37→20:55)
[2021-09-23] MEDS: LevALBUTEROL HCL 1.25 MG/0.5 ML *CONC.* VIAL.NEB (XOPENEX CONC.) INH SCH ×4 (00:58→20:42)
[2021-09-23] MEDS: KCL 20 mEq in D5NS 1000 mL 1,000 ML IV SCH ×2 (04:41→13:09)
[2021-09-23] MEDS: DEXMEDETOMIDINE HCL 400 MCG in NS 96 ML IV PRN ×3 (04:58→21:50)
[2021-09-23 06:44] LABS: BASOPHILS # (AUTO) 0.1 K/uL (0.0-0.2); EOSINOPHILS # (AUTO) 0.2 K/uL (0.0-0.4); EOSINOPHILS % (AUTO) 3.8 % (0.0-4.0); HEMOGLOBIN 11.7 g/dL (12.0-16.0); LYMPHOCYTES # (AUTO) 0.4 K/uL (1.0-5.5); MEAN CORPUSCULAR HEMOGLOBIN 29 pg (27-31); MEAN CORPUSCULAR HGB CONC 34 % (32-36); MEAN CORPUSCULAR VOLUME 87 fL (79.0-98.0); MONOCYTES # (AUTO) 0.3 K/uL (0.0-1.0); NEUTROPHILS # (AUTO) 5.3 K/uL (1.8-7.7); NEUTROPHILS % (AUTO) 84.2 % (40.0-70.0); PLATELET COUNT (AUTO) 120 K/uL (130-430); RED BLOOD CELL COUNT(AUTO) 4.03 MIL/uL (4.2-6.2); RED CELL DISTRIBUTION WIDTH 16.3 % (9.0-15.0); WHITE BLOOD COUNT (AUTO) 6.3 K/uL (4.8-10.8)
[2021-09-23 07:10] LABS: CALCIUM 8.2 mg/dL (8.4-11.0); CREATININE 1.41 mg/dL (0.55-1.30); POTASSIUM 4.4 mmol/L (3.5-5.1)
[2021-09-23] MEDS: VANCOMYCIN HCL 750 MG in NS 250 ML IV SCH (09:00)
[2021-09-23] MEDS: ENOXAPARIN SODIUM 40 MG/0.4 ML SYRINGE SUBCUT SCH (09:03)
[2021-09-23] MEDS: PROPOFOL DRIP 100 ML IV PRN ×2 (09:15→19:32)
[2021-09-23] MEDS: ERTAPENEM SODIUM 1 GM in NS 50 ML IV SCH (13:11)
[2021-09-23] MEDS ORDERED: SODIUM BICARBONATE 8.4% JECT 50 MEQ/50 ML SYRINGE IVP SCH (15:00)
[2021-09-23] MEDS: NOREPINEPHRINE BITARTRATE 8 MG in D5W 242 ML IV PRN (21:54)
[2021-09-24] VITALS (37 sets, daily range): BP systolic 81–142
[2021-09-24] MEDS: KCL 20 mEq in D5NS 1000 mL 1,000 ML IV SCH ×3 (01:25→11:32)
[2021-09-24] MEDS: LevALBUTEROL HCL 1.25 MG/0.5 ML *CONC.* VIAL.NEB (XOPENEX CONC.) INH SCH ×4 (01:46→19:27)
[2021-09-24] MEDS: CLINDAMYCIN 600 mg/50mL D5W 50 ML IV SCH ×4 (01:53→19:42)
[2021-09-24] MEDS: PROPOFOL DRIP 100 ML IV PRN ×2 (05:01→11:37)
[2021-09-24] MEDS: DEXMEDETOMIDINE HCL 400 MCG in NS 96 ML IV PRN ×2 (05:09→11:38)
[2021-09-24 06:36] LABS: BASOPHILS % (AUTO) 0.4 % (0.0-2.0); EOSINOPHILS # (AUTO) 0.4 K/uL (0.0-0.4); EOSINOPHILS % (AUTO) 6.2 % (0.0-4.0); HEMOGLOBIN 11.8 g/dL (12.0-16.0); LYMPHOCYTES # (AUTO) 0.7 K/uL (1.0-5.5); LYMPHOCYTES % (AUTO) 10.6 % (20.5-51.5); MEAN CORPUSCULAR HEMOGLOBIN 29 pg (27-31); MEAN CORPUSCULAR HGB CONC 33 % (32-36); MEAN CORPUSCULAR VOLUME 87 fL (79.0-98.0); MONOCYTES # (AUTO) 0.4 K/uL (0.0-1.0); MONOCYTES % (AUTO) 7.1 % (1.7-9.3); NEUTROPHILS # (AUTO) 4.7 K/uL (1.8-7.7); NEUTROPHILS % (AUTO) 75.7 % (40.0-70.0); PLATELET COUNT (AUTO) 125 K/uL (130-430); RED BLOOD CELL COUNT(AUTO) 4.13 MIL/uL (4.2-6.2); RED CELL DISTRIBUTION WIDTH 16.8 % (9.0-15.0); WHITE BLOOD COUNT (AUTO) 6.3 K/uL (4.8-10.8)
[2021-09-24 06:50] LABS: ALBUMIN 1.6 g/dL (3.4-4.8); CALCIUM 8.3 mg/dL (8.4-11.0); CREATININE 1.12 mg/dL (0.55-1.30); POTASSIUM 4.3 mmol/L (3.5-5.1)
[2021-09-24] MEDS ORDERED: NICOTINE 14 MG/24 HR PATCH.TD24 TD ONE (08:00)
[2021-09-24] MEDS: ENOXAPARIN SODIUM 40 MG/0.4 ML SYRINGE SUBCUT SCH (08:21)
[2021-09-24] MEDS: NOREPINEPHRINE BITARTRATE 8 MG in D5W 242 ML IV PRN (11:54)
[2021-09-24] MEDS ORDERED: ALBUMIN HUMAN 25% 100 ML IV ONE (12:00)
[2021-09-24] MEDS: ERTAPENEM SODIUM 1 GM in NS 50 ML IV SCH (12:13)
[2021-09-25] VITALS (33 sets, daily range): BP systolic 101–134
[2021-09-25] MEDS: PROPOFOL DRIP 100 ML IV PRN ×4 (00:10→20:20)
[2021-09-25] MEDS: KCL 20 mEq in D5NS 1000 mL 1,000 ML IV SCH ×2 (00:47→17:11)
[2021-09-25] MEDS: DEXMEDETOMIDINE HCL 400 MCG in NS 96 ML IV PRN ×2 (00:49→12:46)
[2021-09-25] MEDS: CLINDAMYCIN 600 mg/50mL D5W 50 ML IV SCH ×2 (04:49→09:03)
[2021-09-25] MEDS: NOREPINEPHRINE BITARTRATE 8 MG in D5W 242 ML IV PRN (04:51)
[2021-09-25] MEDS: VANCOMYCIN HCL 1,250 MG in NS 250 ML IV SCH (05:33)
[2021-09-25 06:33] LABS: BASOPHILS # (AUTO) 0.1 K/uL (0.0-0.2); BASOPHILS % (AUTO) 0.9 % (0.0-2.0); EOSINOPHILS # (AUTO) 0.5 K/uL (0.0-0.4); EOSINOPHILS % (AUTO) 7.9 % (0.0-4.0); HEMATOCRIT 34.1 % (36-48); HEMOGLOBIN 11.4 g/dL (12.0-16.0); LYMPHOCYTES # (AUTO) 0.8 K/uL (1.0-5.5); LYMPHOCYTES % (AUTO) 13.9 % (20.5-51.5); MEAN CORPUSCULAR HEMOGLOBIN 29 pg (27-31); MEAN CORPUSCULAR HGB CONC 33 % (32-36); MEAN CORPUSCULAR VOLUME 86 fL (79.0-98.0); MONOCYTES # (AUTO) 0.5 K/uL (0.0-1.0); MONOCYTES % (AUTO) 8.3 % (1.7-9.3); NEUTROPHILS # (AUTO) 3.9 K/uL (1.8-7.7); PLATELET COUNT (AUTO) 127 K/uL (130-430); RED BLOOD CELL COUNT(AUTO) 3.96 MIL/uL (4.2-6.2); RED CELL DISTRIBUTION WIDTH 16.2 % (9.0-15.0); WHITE BLOOD COUNT (AUTO) 5.7 K/uL (4.8-10.8)
[2021-09-25] MEDS: LevALBUTEROL HCL 1.25 MG/0.5 ML *CONC.* VIAL.NEB (XOPENEX CONC.) INH SCH ×3 (07:33→19:32)
[2021-09-25 07:50] LABS: ALBUMIN 1.7 g/dL (3.4-4.8); CALCIUM 8.5 mg/dL (8.4-11.0)
[2021-09-25] MEDS: ENOXAPARIN SODIUM 40 MG/0.4 ML SYRINGE SUBCUT SCH (09:03)
[2021-09-25] MEDS: NICOTINE 14 MG/24 HR PATCH.TD24 TD SCH (09:03)
[2021-09-25] MEDS: ERTAPENEM SODIUM 1 GM in NS 50 ML IV SCH (13:56)
[2021-09-26] VITALS (27 sets, daily range): BP systolic 107–196
[2021-09-26] MEDS: LevALBUTEROL HCL 1.25 MG/0.5 ML *CONC.* VIAL.NEB (XOPENEX CONC.) INH SCH ×4 (01:57→19:51)
[2021-09-26] MEDS: NOREPINEPHRINE BITARTRATE 8 MG in D5W 242 ML IV PRN ×5 (04:36→21:33)
[2021-09-26] MEDS: LORazepam 2 MG/ML VIAL IVP PRN (04:54)
[2021-09-26] MEDS: VANCOMYCIN HCL 1,250 MG in NS 250 ML IV SCH (05:19)
[2021-09-26] MEDS: PROPOFOL DRIP 100 ML IV PRN ×5 (05:21→23:24)
[2021-09-26 05:50] LABS: BASOPHILS # (AUTO) 0.1 K/uL (0.0-0.2); BASOPHILS % (AUTO) 0.7 % (0.0-2.0); EOSINOPHILS # (AUTO) 0.6 K/uL (0.0-0.4); EOSINOPHILS % (AUTO) 6.4 % (0.0-4.0); HEMATOCRIT 36.9 % (36-48); HEMOGLOBIN 12.2 g/dL (12.0-16.0); LYMPHOCYTES # (AUTO) 1.1 K/uL (1.0-5.5); LYMPHOCYTES % (AUTO) 12.7 % (20.5-51.5); MEAN CORPUSCULAR HEMOGLOBIN 29 pg (27-31); MEAN CORPUSCULAR HGB CONC 33 % (32-36); MEAN CORPUSCULAR VOLUME 87 fL (79.0-98.0); MONOCYTES # (AUTO) 0.6 K/uL (0.0-1.0); MONOCYTES % (AUTO) 6.6 % (1.7-9.3); NEUTROPHILS # (AUTO) 6.6 K/uL (1.8-7.7); NEUTROPHILS % (AUTO) 73.6 % (40.0-70.0); PLATELET COUNT (AUTO) 196 K/uL (130-430); RED BLOOD CELL COUNT(AUTO) 4.25 MIL/uL (4.2-6.2); RED CELL DISTRIBUTION WIDTH 16.4 % (9.0-15.0)
[2021-09-26 06:05] LABS: ALBUMIN 1.7 g/dL (3.4-4.8); CREATININE 0.9 mg/dL (0.55-1.30); TOTAL BILIRUBIN 0.9 mg/dL (0.0-1.0)
[2021-09-26 06:27] LABS: POTASSIUM 4.3 mmol/L (3.5-5.1)
[2021-09-26] MEDS: NICOTINE 14 MG/24 HR PATCH.TD24 TD SCH (09:34)
[2021-09-26] MEDS: DEXMEDETOMIDINE HCL 400 MCG in NS 96 ML IV PRN (09:34)
[2021-09-26] MEDS: ENOXAPARIN SODIUM 40 MG/0.4 ML SYRINGE SUBCUT SCH (09:34)
[2021-09-26] MEDS: KCL 20 mEq in D5NS 1000 mL 1,000 ML IV SCH (09:36)
[2021-09-26] MEDS ORDERED: FUROSEMIDE 40 MG/4 ML VIAL IVP ONE (12:15)
[2021-09-26] MEDS ORDERED: FUROSEMIDE 40 MG/4 ML VIAL ONE (12:19)
[2021-09-26] MEDS: ERTAPENEM SODIUM 1 GM in NS 50 ML IV SCH (14:01)
[2021-09-26] MEDS: QUEtiapine FUMARATE 100 MG TABLET PO SCH (21:36)
[2021-09-26] MEDS: MIDODRINE HCL 5 MG TABLET (PROAMATINE) PO SCH (21:37)
[2021-09-26] MEDS: AMMONIUM LACTATE 226 GM LOTION TP SCH (21:38)
[2021-09-27] VITALS (33 sets, daily range): BP systolic 94–159
[2021-09-27] MEDS: LevALBUTEROL HCL 1.25 MG/0.5 ML *CONC.* VIAL.NEB (XOPENEX CONC.) INH SCH ×4 (00:48→19:37)
[2021-09-27] MEDS: PROPOFOL DRIP 100 ML IV PRN ×4 (01:50→17:28)
[2021-09-27] MEDS: NOREPINEPHRINE BITARTRATE 8 MG in D5W 242 ML IV PRN ×3 (01:50→15:15)
[2021-09-27] MEDS: KCL 20 mEq in D5NS 1000 mL 1,000 ML IV SCH ×2 (02:35→19:15)
[2021-09-27] MEDS: VANCOMYCIN HCL 1,250 MG in NS 250 ML IV SCH (05:16)
[2021-09-27 06:14] LABS: BASOPHILS # (AUTO) 0.1 K/uL (0.0-0.2); BASOPHILS % (AUTO) 0.7 % (0.0-2.0); EOSINOPHILS # (AUTO) 0.9 K/uL (0.0-0.4); HEMATOCRIT 35.4 % (36-48); HEMOGLOBIN 11.9 g/dL (12.0-16.0); LYMPHOCYTES # (AUTO) 1.3 K/uL (1.0-5.5); LYMPHOCYTES % (AUTO) 11.9 % (20.5-51.5); MEAN CORPUSCULAR HEMOGLOBIN 29 pg (27-31); MEAN CORPUSCULAR HGB CONC 34 % (32-36); MEAN CORPUSCULAR VOLUME 87 fL (79.0-98.0); MONOCYTES # (AUTO) 0.3 K/uL (0.0-1.0); MONOCYTES % (AUTO) 2.7 % (1.7-9.3); NEUTROPHILS # (AUTO) 8.3 K/uL (1.8-7.7); NEUTROPHILS % (AUTO) 76.7 % (40.0-70.0); PLATELET COUNT (AUTO) 278 K/uL (130-430); RED BLOOD CELL COUNT(AUTO) 4.08 MIL/uL (4.2-6.2); WHITE BLOOD COUNT (AUTO) 10.9 K/uL (4.8-10.8)
[2021-09-27 06:53] LABS: ALBUMIN 1.6 g/dL (3.4-4.8); CALCIUM 8.5 mg/dL (8.4-11.0); CREATININE 0.94 mg/dL (0.55-1.30); POTASSIUM 4.1 mmol/L (3.5-5.1); TOTAL BILIRUBIN 0.6 mg/dL (0.0-1.0)
[2021-09-27] MEDS: NICOTINE 14 MG/24 HR PATCH.TD24 TD SCH (08:18)
[2021-09-27] MEDS: ENOXAPARIN SODIUM 40 MG/0.4 ML SYRINGE SUBCUT SCH (08:19)
[2021-09-27] MEDS: QUEtiapine FUMARATE 100 MG TABLET PO SCH ×2 (08:19→21:28)
[2021-09-27] MEDS: MIDODRINE HCL 5 MG TABLET (PROAMATINE) PO SCH ×3 (08:19→21:28)
[2021-09-27] MEDS: AMMONIUM LACTATE 226 GM LOTION TP SCH ×2 (10:06→21:29)
[2021-09-27] MEDS: FUROSEMIDE 20 MG/2 ML VIAL IVP SCH ×2 (10:24→21:29)
[2021-09-27] MEDS: ERTAPENEM SODIUM 1 GM in NS 50 ML IV SCH (13:33)
[2021-09-28] VITALS (33 sets, daily range): BP systolic 95–120
[2021-09-28] MEDS: PROPOFOL DRIP 100 ML IV PRN ×4 (00:09→19:30)
[2021-09-28] MEDS: LevALBUTEROL HCL 1.25 MG/0.5 ML *CONC.* VIAL.NEB (XOPENEX CONC.) INH SCH ×4 (00:55→19:16)
[2021-09-28] MEDS: KCL 20 mEq in D5NS 1000 mL 1,000 ML IV SCH (03:00)
[2021-09-28] MEDS: VANCOMYCIN HCL 1,250 MG in NS 250 ML IV SCH (05:37)
[2021-09-28] MEDS: ENOXAPARIN SODIUM 40 MG/0.4 ML SYRINGE SUBCUT SCH (10:26)
[2021-09-28] MEDS: FUROSEMIDE 20 MG/2 ML VIAL IVP SCH ×2 (10:27→21:39)
[2021-09-28] MEDS: MIDODRINE HCL 5 MG TABLET (PROAMATINE) PO SCH ×3 (10:27→21:39)
[2021-09-28] MEDS: QUEtiapine FUMARATE 100 MG TABLET PO SCH ×2 (10:27→21:00)
[2021-09-28] MEDS: NICOTINE 14 MG/24 HR PATCH.TD24 TD SCH (10:28)
[2021-09-28] MEDS: NOREPINEPHRINE BITARTRATE 8 MG in D5W 242 ML IV PRN (10:34)
[2021-09-28] MEDS: AMMONIUM LACTATE 226 GM LOTION TP SCH ×2 (10:35→21:40)
[2021-09-28] MEDS: ERTAPENEM SODIUM 1 GM in NS 50 ML IV SCH (13:06)
[2021-09-28] MEDS: METOCLOPRAMIDE HCL 10 MG/2 ML VIAL IVP SCH (21:39)
[2021-09-29] VITALS (35 sets, daily range): BP systolic 67–119
[2021-09-29] MEDS: LevALBUTEROL HCL 1.25 MG/0.5 ML *CONC.* VIAL.NEB (XOPENEX CONC.) INH SCH ×4 (02:21→19:27)
[2021-09-29] MEDS: KCL 20 mEq in D5NS 1000 mL 1,000 ML IV SCH (03:13)
[2021-09-29] MEDS: PROPOFOL DRIP 100 ML IV PRN ×5 (03:41→21:29)
[2021-09-29] MEDS: VANCOMYCIN HCL 1,250 MG in NS 250 ML IV SCH (06:48)
[2021-09-29] MEDS: METOCLOPRAMIDE HCL 10 MG/2 ML VIAL IVP SCH ×3 (08:20→21:12)
[2021-09-29] MEDS: QUEtiapine FUMARATE 100 MG TABLET PO SCH ×2 (08:22→20:17)
[2021-09-29] MEDS: MIDODRINE HCL 5 MG TABLET (PROAMATINE) PO SCH ×3 (08:22→20:17)
[2021-09-29] MEDS: NICOTINE 14 MG/24 HR PATCH.TD24 TD SCH (08:22)
[2021-09-29] MEDS: FUROSEMIDE 20 MG/2 ML VIAL IVP SCH ×2 (08:22→21:11)
[2021-09-29] MEDS: AMMONIUM LACTATE 226 GM LOTION TP SCH ×2 (08:23→21:12)
[2021-09-29] MEDS: ENOXAPARIN SODIUM 40 MG/0.4 ML SYRINGE SUBCUT SCH (08:23)
[2021-09-29 09:38] LABS: ALBUMIN 1.5 g/dL (3.4-4.8); CALCIUM 8.6 mg/dL (8.4-11.0); CREATININE 0.86 mg/dL (0.55-1.30); POTASSIUM 3.8 mmol/L (3.5-5.1); TOTAL BILIRUBIN 0.4 mg/dL (0.0-1.0)
[2021-09-29 10:36] LABS: BASOPHILS % (AUTO) 0.1 % (0.0-2.0); EOSINOPHILS # (AUTO) 0.5 K/uL (0.0-0.4); EOSINOPHILS % (AUTO) 5.5 % (0.0-4.0); HEMATOCRIT 29.7 % (36-48); LYMPHOCYTES # (AUTO) 1.2 K/uL (1.0-5.5); LYMPHOCYTES % (AUTO) 13.1 % (20.5-51.5); MEAN CORPUSCULAR HEMOGLOBIN 29 pg (27-31); MEAN CORPUSCULAR HGB CONC 34 % (32-36); MEAN CORPUSCULAR VOLUME 87 fL (79.0-98.0); MONOCYTES # (AUTO) 0.3 K/uL (0.0-1.0); NEUTROPHILS # (AUTO) 7.3 K/uL (1.8-7.7); PLATELET COUNT (AUTO) 273 K/uL (130-430); RED CELL DISTRIBUTION WIDTH 16.6 % (9.0-15.0); WHITE BLOOD COUNT (AUTO) 9.4 K/uL (4.8-10.8)
[2021-09-29 11:09] LABS: PROTHROMBIN TIME 10.2 SECS (9.5-12.5)
[2021-09-29] MEDS: ERTAPENEM SODIUM 1 GM in NS 50 ML IV SCH (12:20)
[2021-09-29 13:57] LABS: NEUTROPHILS % (AUTO) 78.3 % (40.0-70.0)
[2021-09-29] MEDS: NOREPINEPHRINE BITARTRATE 8 MG in D5W 242 ML IV PRN (16:32)
[2021-09-29] MEDS: PANTOPRAZOLE SODIUM 40 MG in NS 50 ML IV SCH ×2 (17:41→21:13)
[2021-09-29] MEDS ORDERED: NACL 0.9% 1,000 ML IV ONE (18:30)
[2021-09-29] MEDS ORDERED: NALOXONE HCL 0.4 MG/ML AMP (NARCAN) IVP PRN (18:30)
[2021-09-29] MEDS ORDERED: MORPHINE SULFATE IN 0.9 % NACL 100 ML IV ONE (18:55)
[2021-09-29 19:13] LABS: HEMATOCRIT 22.8 % (36-48); HEMOGLOBIN 7.3 g/dL (12.0-16.0); MEAN CORPUSCULAR HEMOGLOBIN 29 pg (27-31); MEAN CORPUSCULAR HGB CONC 32 % (32-36); PLATELET COUNT (AUTO) 371 K/uL (130-430); RED CELL DISTRIBUTION WIDTH 16.9 % (9.0-15.0)
[2021-09-29 19:21] LABS: INR 1.1 (0.8-1.2); PROTHROMBIN TIME 11.3 SECS (9.5-12.5)
[2021-09-29 19:26] LABS: MEAN CORPUSCULAR VOLUME 91 fL (79.0-98.0); WHITE BLOOD COUNT (AUTO) 32.6 K/uL (4.8-10.8)
[2021-09-29] MEDS: MORPHINE SULFATE IN 0.9 % NACL 100 ML IV PRN (19:31)
[2021-09-29] MEDS ORDERED: VASOPRESSIN 20 UNITS/ML VIAL IV ONE (19:37)
[2021-09-29] MEDS ORDERED: ALBUMIN HUMAN 25% 150 ML IV ONE (19:42)
[2021-09-29] MEDS ORDERED: ALBUMIN HUMAN 25% 50 ML IV ONE (19:43)
[2021-09-29] MEDS: ALBUMIN HUMAN 25% 100 ML IV SCH (20:08)
[2021-09-29] MEDS: NOREPINEPHRINE BITARTRATE 32 MG in D5W 218 ML IV PRN ×2 (20:11→21:28)
[2021-09-29] MEDS: VASOPRESSIN 20 UNITS in NS 99 ML IV PRN (20:17)
[2021-09-29] MEDS ORDERED: KCL IV ONE (20:45)
[2021-09-29] MEDS ORDERED: NS IV ONE (20:45)
[2021-09-29] MEDS ORDERED: PANTOPRAZOLE SODIUM 40 MG/VIAL (PROTONIX) IVP SCH (21:00)
[2021-09-29] MEDS ORDERED: NOREPINEPHRINE 4 MG/4 ML VIAL IV ONE (21:06)
[2021-09-29] MEDS: KCL 20 mEq in NS 1000 mL 1,000 ML IV SCH (22:11)
[2021-09-30] VITALS (31 sets, daily range): BP systolic 84–182
[2021-09-30] MEDS: ALBUMIN HUMAN 25% 100 ML IV SCH ×2 (00:12→04:28)
[2021-09-30] MEDS ORDERED: NOREPINEPHRINE 4 MG/4 ML VIAL IV ONE ×2 (01:03→01:04)
[2021-09-30] MEDS: LevALBUTEROL HCL 1.25 MG/0.5 ML *CONC.* VIAL.NEB (XOPENEX CONC.) INH SCH ×4 (01:13→19:50)
[2021-09-30] MEDS: NOREPINEPHRINE BITARTRATE 32 MG in D5W 218 ML IV PRN ×2 (01:36→11:27)
[2021-09-30] MEDS: KCL 20 mEq in NS 1000 mL 1,000 ML IV SCH ×4 (03:03→21:31)
[2021-09-30] MEDS: PANTOPRAZOLE SODIUM 40 MG in NS 50 ML IV SCH ×5 (03:04→21:30)
[2021-09-30] MEDS ORDERED: VASOPRESSIN 20 UNITS/ML VIAL IV ONE (03:08)
[2021-09-30] MEDS: VASOPRESSIN 20 UNITS in NS 99 ML IV PRN ×2 (03:09→16:11)
[2021-09-30] MEDS ORDERED: ALBUMIN HUMAN 25% 100 ML IV ONE (05:11)
[2021-09-30] MEDS: NICOTINE 14 MG/24 HR PATCH.TD24 TD SCH (09:00)
[2021-09-30] MEDS: QUEtiapine FUMARATE 100 MG TABLET PO SCH ×2 (09:00→20:58)
[2021-09-30] MEDS: FUROSEMIDE 20 MG/2 ML VIAL IVP SCH ×2 (09:00→20:45)
[2021-09-30] MEDS: METOCLOPRAMIDE HCL 10 MG/2 ML VIAL IVP SCH ×3 (09:27→20:45)
[2021-09-30] MEDS: AMMONIUM LACTATE 226 GM LOTION TP SCH ×2 (09:58→20:47)
[2021-09-30] MEDS: MIDODRINE HCL 5 MG TABLET (PROAMATINE) PO SCH ×3 (09:58→20:58)
[2021-09-30] MEDS: MORPHINE SULFATE IN 0.9 % NACL 100 ML IV PRN (11:19)
[2021-09-30] MEDS ORDERED: LORazepam 2 MG/ML VIAL IM PRN (12:30)
[2021-09-30] MEDS: ERTAPENEM SODIUM 1 GM in NS 50 ML IV SCH (13:00)
[2021-09-30 16:40] LABS: HEMOGLOBIN 7.7 g/dL (12.0-16.0); PLATELET COUNT (AUTO) 270 K/uL (130-430)
[2021-09-30 16:45] LABS: HEMATOCRIT 23.6 % (36-48); MEAN CORPUSCULAR HEMOGLOBIN 29 pg (27-31); MEAN CORPUSCULAR HGB CONC 33 % (32-36); MEAN CORPUSCULAR VOLUME 88 fL (79.0-98.0); RED CELL DISTRIBUTION WIDTH 15.7 % (9.0-15.0); WHITE BLOOD COUNT (AUTO) 24.1 K/uL (4.8-10.8)
[2021-09-30] MEDS: PROPOFOL DRIP 100 ML IV PRN (17:24)
[2021-09-30] MEDS: metroNIDAZOLE 500 mg/NS 100 ML IV SCH ×2 (17:31→21:29)
[2021-09-30] MEDS ORDERED: NOREPINEPHRINE BITARTRATE 4 MG in D5W 246 ML IV PRN (17:45)
[2021-09-30 18:05] LABS: BAND % (MANUAL) 4 % (0-6); BASOPHILS % (MANUAL) 0 % (0-2); EOSINOPHILS % (MANUAL) 0 % (0-7); LYMPHOCYTES % (MANUAL) 8 % (20-46); MONOCYTES % (MANUAL) 5 % (0-11)
[2021-09-30 23:29] LABS: EOSINOPHILS # (AUTO) 0.5 K/uL (0.0-0.4); HEMATOCRIT 24.5 % (36-48)
[2021-09-30 23:39] LABS: BASOPHILS # (AUTO) 0.1 K/uL (0.0-0.2); BASOPHILS % (AUTO) 0.5 % (0.0-2.0); EOSINOPHILS % (AUTO) 2.2 % (0.0-4.0); LYMPHOCYTES # (AUTO) 2.6 K/uL (1.0-5.5); MEAN CORPUSCULAR HEMOGLOBIN 29 pg (27-31); MEAN CORPUSCULAR HGB CONC 33 % (32-36); MEAN CORPUSCULAR VOLUME 88 fL (79.0-98.0); MONOCYTES # (AUTO) 0.6 K/uL (0.0-1.0); MONOCYTES % (AUTO) 2.6 % (1.7-9.3); NEUTROPHILS # (AUTO) 19.8 K/uL (1.8-7.7); NEUTROPHILS % (AUTO) 83.7 % (40.0-70.0); PLATELET COUNT (AUTO) 271 K/uL (130-430); RED BLOOD CELL COUNT(AUTO) 2.77 MIL/uL (4.2-6.2); WHITE BLOOD COUNT (AUTO) 23.6 K/uL (4.8-10.8)
[2021-10-01] VITALS (30 sets, daily range): BP systolic 85–132
[2021-10-01] MEDS: MORPHINE SULFATE IN 0.9 % NACL 100 ML IV PRN (01:00)
[2021-10-01] MEDS: LevALBUTEROL HCL 1.25 MG/0.5 ML *CONC.* VIAL.NEB (XOPENEX CONC.) INH SCH ×4 (02:01→19:00)
[2021-10-01] MEDS: KCL 20 mEq in NS 1000 mL 1,000 ML IV SCH ×3 (03:33→16:57)
[2021-10-01] MEDS ORDERED: VASOPRESSIN 20 UNITS/ML VIAL IV ONE (03:54)
[2021-10-01] MEDS: PANTOPRAZOLE SODIUM 40 MG in NS 50 ML IV SCH ×4 (04:03→17:59)
[2021-10-01] MEDS: metroNIDAZOLE 500 mg/NS 100 ML IV SCH ×3 (05:49→22:00)
[2021-10-01 06:49] LABS: HEMATOCRIT 22.7 % (36-48); HEMOGLOBIN 7.4 g/dL (12.0-16.0); MEAN CORPUSCULAR HEMOGLOBIN 29 pg (27-31); MEAN CORPUSCULAR HGB CONC 33 % (32-36); MEAN CORPUSCULAR VOLUME 89 fL (79.0-98.0); PLATELET COUNT (AUTO) 268 K/uL (130-430); RED BLOOD CELL COUNT(AUTO) 2.57 MIL/uL (4.2-6.2); RED CELL DISTRIBUTION WIDTH 16.1 % (9.0-15.0)
[2021-10-01 06:55] LABS: INR 1.1 (0.8-1.2); PROTHROMBIN TIME 11.2 SECS (9.5-12.5)
[2021-10-01 07:10] LABS: ALBUMIN 2.3 g/dL (3.4-4.8); CALCIUM 8.6 mg/dL (8.4-11.0); CREATININE 0.97 mg/dL (0.55-1.30); POTASSIUM 4.5 mmol/L (3.5-5.1); TOTAL BILIRUBIN 0.7 mg/dL (0.0-1.0)
[2021-10-01 08:09] LABS: BAND % (MANUAL) 3 % (0-6); BASOPHILS % (MANUAL) 0 % (0-2); EOSINOPHILS % (MANUAL) 4 % (0-7); LYMPHOCYTES % (MANUAL) 7 % (20-46); METAMYELOCYTES % 1 % (0-0); MONOCYTES % (MANUAL) 1 % (0-11)
[2021-10-01 08:16] LABS: VANCOMYCIN,RANDOM 18.2 ug/mL
[2021-10-01] MEDS: PROPOFOL DRIP 100 ML IV PRN (08:40)
[2021-10-01] MEDS: NICOTINE 14 MG/24 HR PATCH.TD24 TD SCH (08:41)
[2021-10-01] MEDS: MIDODRINE HCL 5 MG TABLET (PROAMATINE) PO SCH ×3 (08:41→21:00)
[2021-10-01] MEDS: QUEtiapine FUMARATE 100 MG TABLET PO SCH ×2 (08:41→21:00)
[2021-10-01] MEDS: AMMONIUM LACTATE 226 GM LOTION TP SCH ×2 (08:42→21:00)
[2021-10-01] MEDS: FUROSEMIDE 20 MG/2 ML VIAL IVP SCH ×2 (08:52→21:00)
[2021-10-01] MEDS: METOCLOPRAMIDE HCL 10 MG/2 ML VIAL IVP SCH ×3 (08:53→21:00)
[2021-10-01] MEDS: ERTAPENEM SODIUM 1 GM in NS 50 ML IV SCH (13:00)
[2021-10-01] MEDS ORDERED: VANCOMYCIN HCL 750 MG in NS 250 ML IV SCH (14:00)
[2021-10-01] MEDS ORDERED: MORPHINE 4 MG INJ. 4 MG/ML VIAL IVP ONE (17:00)
[2021-10-01] MEDS: LORazepam 2 MG/ML VIAL IVP PRN (17:25)
[2021-10-01] MEDS ORDERED: LORazepam 2 MG/ML VIAL IVP PRN (19:30)
[2021-10-02] VITALS: BP_SYST 93
[2021-10-02] MEDS: KCL 20 mEq in NS 1000 mL 1,000 ML IV SCH (00:20)
[2021-10-02 01:00] VITALS: BP_SYST 87
[2021-10-02] MEDS: LevALBUTEROL HCL 1.25 MG/0.5 ML *CONC.* VIAL.NEB (XOPENEX CONC.) INH SCH (01:00)
[2021-10-02 02:00] VITALS: BP_SYST 88
[2021-10-02 03:07] VITALS: BP_SYST 88
[2021-10-02] MEDS ORDERED: MORPHINE SULFATE 10 MG/ML VIAL ONE ×2 (03:08→03:11)
[2021-10-02] MEDS: MORPHINE SULFATE IN 0.9 % NACL 100 ML IV PRN (03:18)
[2021-10-02 04:00] VITALS: BP_SYST 76
[2021-10-02 04:36] VITALS: BP_SYST 0
[2021-10-02] MEDS: PANTOPRAZOLE SODIUM 40 MG in NS 50 ML IV SCH ×3 (05:00)
== END 2021-10-02 06:57 | DRG 720 ==
LOC: SED 15:56 → SMU 18:40 → SIC 09-21 01:35
PROVIDERS: ADMIT Family Medicine; ATTEND Family Medicine
PROC: 5A1955Z Respiratory Ventilation, Greater than 96 Consecutive Hours (ICD-10-PCS; principal; 2021-09-21)
PROC: 0BH17EZ Insertion of Endotracheal Airway into Trachea, Via Natural or Artificial Opening (ICD-10-PCS; 2021-09-21)
PROC: 30233N1 Transfusion of Nonautologous Red Blood Cells into Peripheral Vein, Percutaneous Approach (ICD-10-PCS; 2021-09-30)
DX: A41.9 Sepsis, unspecified organism (principal); J96.01 Acute respiratory failure with hypoxia; R65.21 Severe sepsis with septic shock; G93.41 Metabolic encephalopathy; K92.0 Hematemesis; L03.116 Cellulitis of left lower limb; L03.115 Cellulitis of right lower limb; F17.200 Nicotine dependence, unspecified, uncomplicated; D64.9 Anemia, unspecified; Z20.822 Contact with and (suspected) exposure to COVID-19; F15.10 Other stimulant abuse, uncomplicated; N39.0 Urinary tract infection, site not specified; F12.10 Cannabis abuse, uncomplicated; E88.09 Other disorders of plasma-protein metabolism, not elsewhere classified; N17.9 Acute kidney failure, unspecified; E66.01 Morbid (severe) obesity due to excess calories; B96.20 Unspecified Escherichia coli [E. coli] as the cause of diseases classified elsewhere; Z88.0 Allergy status to penicillin; Z88.8 Allergy status to other drugs, medicaments and biological substances; Z79.899 Other long term (current) drug therapy; Z68.39 Body mass index [BMI] 39.0-39.9, adult
CPT/HCPCS: 36415; 36600; 70450-TC; 71045; 74018; 76376; 80048; 80053; 80202; 80307; 81000; 82272; 82550; 82803-TC; 82962; 83051; 83605; 83735; 83880; 84443; 84484; 85007; 85014; 85025; 85027; 85048; 85049-TC; 85379; 85610-TC; 85730-TC; 86886; 86900; 86901; 86920; 87040; 87081; 87086; 93005; 93970; 93971; 94002; 94003; 94640; 96361; 96374; 99285; C9113; G0482; J0131; J0330; J0692; J0696; J1335; J1650; J1940; J2060; J2250; J2270; J2704; J2765; J3370; J3465; J3480; J3490; J7050; J7060; J7612; P9021; P9046